=== PATIENT | female | born 1965 | race Caucasian/White ===

== ENCOUNTER 2017-12-16 10:19 | Emergency (ER) | payer OTHER ==
--- NOTE | 2017-12-16 10:31 | ED GI/GU/ABDOMINAL COMPLAINT ---
See Addendum History of Present Illness General Chief Complaint: Abdominal Pain/Flank Pain Stated Complaint: BIBA ABD PAIN Source: patient Exam Limitations: no limitations Vital Signs & Intake/Output Vital Signs & Intake/Output Vital Signs Date Time Temp Pulse Resp B/P B/P Pulse O2 O2 Flow FiO2 Mean Ox Delivery Rate 12/16 1851 97.0 78 18 123/70 12/16 1848 97.3 78 18 123/70 98 Room Air 12/16 1706 97.6 100 20 127/83 12/16 1623 97.6 100 20 127/83 97 Room Air 12/16 1210 Room Air 12/16 1201 98.3 100 18 124/82 12/16 1032 98.6 120 20 110/80 Allergies Coded Allergies: Sulfa (Sulfonamide Antibiotics) (UNKNOWN 12/16/17) Reconcile Medications No Known Home Medications Triage Nurses Notes Reviewed? yes ? N Is pt currently ? No Onset: Gradual Duration: day(s): Timing: recent history Quality/Severity: severe Location: generalized abdomen HPI: 52-year-old female with history of alcoholism BIBA to emergency department complaining of severe abdominal pain. Patient reports abdominal pain for the past 3 days. Abdominal pain described as 10/10 generalized and lower abdominal pain. She states she has the urge to "push something out" like she is in labor. Patient reports an episode of bright red vomiting prior to arrival. Patient has also had episodes of diarrhea, she is unsure of when her last bowel movement was. Patient reports drinking alcohol today to "numb the pain". Patient denies fevers, chills, vaginal bleeding, urinary symptoms. (Ching Layne) Past History Travel History Traveled to [place] past 21 day No Medical History Any Pertinent Medical History? see below for history Surgical History Surgical History: non-contributory Psychosocial History What is your primary language Italian Family History Hx Contributory? No (Ching Layne) Review of Systems Review of Systems Constitutional: Reports: no symptoms. EENTM: Reports: no symptoms. Respiratory: Reports: no symptoms. Cardiovascular: Reports: no symptoms. GI: Reports: see HPI. Genitourinary: Reports: no symptoms. Musculoskeletal: Reports: no symptoms. Skin: Reports: no symptoms. Neurological/Psychological: Reports: no symptoms. Hematologic/Endocrine: Reports: no symptoms. Immunologic/Allergic: Reports: no symptoms. All Other Systems: Reviewed and Negative (Alexandria BULL,Ching Juarez) Physical Exam Physical Exam General Appearance: well developed/nourished, alert, awake, moderate distress Head: atraumatic, normal appearance Eyes: Bilateral: normal appearance. Ears, Nose, Throat, Mouth: hearing grossly normal Neck: normal inspection, supple, full range of motion Respiratory: normal breath sounds, no respiratory distress, lungs clear Cardiovascular: regular rate/rhythm Gastrointestinal: TENDERNESS THROUGH OUT WITH GAURDING Rectal: deferred Back: normal inspection, normal range of motion Extremities: normal range of motion Neurologic/Psych: awake, alert, oriented x 3 Skin: intact, normal color, warm/dry Core Measures ACS in differential dx? No Sepsis Present: No Sepsis Focused Exam Completed? No (Alexandria BULL,Ching Juarez) Progress Differential Diagnosis: appendicitis, bowel obstruction, colon cancer, cholecystitis, diverticulitis, gastritis, hepatitis, hernia, inflamm bowel dis, kidney stone, Day-Anjel tear, peptic ulcer, PUD/GERD, perforated viscous, SBO , UTI/pyelo, esophageal perforation, uterine prolapse, GI bleed Plan of Care: Orders Procedure Date/time Status URINE DRUG SCREEN FOR ER ONLY 12/16 1030 Complete URINALYSIS 12/16 1030 Complete TROPONIN LEVEL 12/16 1030 Complete PARTIAL THROMBOPLASTIN TIME 12/16 1030 Complete PROTHROMBIN TIME 12/16 1030 Complete LIPASE 12/16 1030 Complete ETHANOL 12/16 1030 Complete COMPREHENSIVE METABOLIC PANEL 12/16 1030 Complete CBC WITHOUT DIFFERENTIAL 12/16 1030 Complete AMYLASE 12/16 1030 Complete EKG 12/16 1030 Active Current Medications Sig/Javier Start time Last Medication Dose Stop Time Status Admin Promethazine HCl 25 MG ONCE ONE 12/16 1545 CAN (Phenergen) 12/16 1546 Laboratory Tests 12/16/17 1230: Urine Opiates Screen 1116.00, Methadone Screen < 40, Barbiturate Screen < 60, Ur Phencyclidine Scrn < 6.00, Amphetamines Screen < 100, U Benzodiazepines Scrn < 85, Urine Cocaine Screen < 50, Urine Cannabis Screen < 5.00, Urine Color YEL, Urine Clarity HAZY H, Urine pH 6.0, Ur Specific [place] 1.015, Urine Protein 30 H, Urine Ketones NEG, Urine Nitrite NEG, Urine Bilirubin NEG, Urine Urobilinogen 0.2, Ur Leukocyte Esterase NEG, Ur Microscopic SEDIMENT EXAMINED, Urine RBC 1-3, Urine WBC 1-3 H, Ur Epithelial Cells MOD H, Urine Bacteria MOD H, Hyaline Casts 1-3 H, Granular Casts RARE H, Urine Hemoglobin TRACE-INTACT, Urine Glucose NEG 12/16/17 1040: Anion Gap 21 H, Estimated GFR > 60, BUN/Creatinine Ratio 21.7, Glucose 114 H, Calcium 9.6, Total Bilirubin 0.6, AST 38 H, ALT 32, Alkaline Phosphatase 142 H , Troponin I < 0.01, Total Protein 8.2, Albumin 4.9, Globulin 3.3, Albumin/ Globulin Ratio 1.5, Amylase 41, Lipase 153, PT 10.8, INR 0.99, APTT 26, CBC w Diff NO MAN DIFF REQ, RBC 5.15, MCV 91.5, MCH 31.7 H, MCHC 34.7, RDW 12.5, MPV 7.9, Gran % 65.5, Lymphocytes % 24.5, Monocytes % 9.0, Eosinophils % 0.5, Basophils % 0.5, Absolute Granulocytes 7.4 H, Absolute Lymphocytes 2.8, Absolute Monocytes 1.0 H, Absolute Eosinophils 0.1, Absolute Basophils 0.1, Serum Alcohol 273.[address] scan shows no acute abnormalities to explain the patient's current symptoms. The patient's labs are nonactionable, the patient's H/H is stable. The patient declined rectal exam. Patient's alcohol level is 273. She is complaining of persistent abdominal pain despite IV morphine. I informed the patient we could not provide her with further narcotic medications given her elevated alcohol level. Patient is requesting to leave the hospital however she does not have a ride. The patient is still intoxicated and will require a ride or will need to be sober prior to discharge. The patient was signed out to Dr. Muhammad pending clinical sobriety. Diagnostic Imaging: Viewed by Me: CT Scan. Discussed w/RAD: CT Scan. Radiology Impression: PATIENT: RAFAEL GARCIA PRESENT AGE: 52 PATIENT ACCOUNT NO: [id number] : 66 LOCATION: [facility] ORDERING PHYSICIAN: Ching BULL SERVICE DATE: 07/ EXAM TYPE: CAT - CT CERV SPINE WO IV CONTRAST; CT HEAD WO IV CONTRAST EXAMINATION: CT HEAD WITHOUT CONTRAST CT CERVICAL SPINE WITHOUT CONTRAST CLINICAL INFORMATION: Status post fall. COMPARISON: None. TECHNIQUE: Contiguous axial imaging was performed from the skullbase to vertex without intravenous administration of contrast. Multidetector helical imaging was performed through the cervical spine. DLP: 926.5 mGy-cm. FINDINGS: HEAD: There is no evidence of acute intracranial hemorrhage or territorial infarction. No abnormal mass effect or midline shift is seen. Casper to white matter differentiation is well preserved. No extra-axial fluid collections are identified. The ventricles are normal in size. Brain parenchymal attenuation is normal. The osseous structures and soft tissues are normal. The mastoid air cells and visualized portions of the paranasal sinuses are fairly well aerated. CERVICAL SPINE: No acute fracture or dislocation is identified in the cervical spine. There is a reversal of the normal cervical lordosis with mild to moderate disc space narrowing and minimal endplate spurring at the C4-C5 and C5-C6 levels. Mild degenerative disc bulges present in the mid to lower cervical spine. The atlantoaxial articulation is normally maintained. The paraspinal soft tissues are normal. The lung apices are clear. IMPRESSION: 1. No acute intracranial pathology. 2. No evidence of acute cervical spine traumatic injury. Mild mid to lower cervical spondylosis and reversal of the normal cervical lordosis. DICTATED BY: Manjit Jaime MD DATE/TIME DICTATED:12/16/171256 PATIENT CARE ASSISTANT:YVON DATE/TIME TRANSCRIBED:1256 CONFIDENTIAL, DO NOT COPY WITHOUT APPROPRIATE AUTHORIZATION. < Electronically signed in Other Vendor System> SIGNED BY: Manjit Jaime MD 12/16/17 1306, PATIENT: RAFAEL GARCIA PRESENT AGE: 52 PATIENT ACCOUNT NO: [id number] : 66 LOCATION: [facility] ORDERING PHYSICIAN: Ching BULL SERVICE DATE: 12/16/17 EXAM TYPE: CAT - CT ABD & PELVIS W IV CONTRAST; CT CHEST W IV CONTRAST EXAMINATION: CT SCAN OF THE CHEST WITH CONTRAST CT SCAN OF THE ABDOMEN AND PELVIS WITH CONTRAST CLINICAL INFORMATION: Rule out esophageal tear. Severe diffuse abdominal pain with hematemesis. COMPARISON: None TECHNIQUE: Multidetector helical imaging was performed in the axial plane following intravenous administration of 95 mL Optiray 320. Dose is 370.98 mGy-cm. FINDINGS: Chest: Heart size is normal. There is no mediastinal, axillary, or hilar adenopathy. The soft tissues of the lower neck appear normal. There is a small dystrophic calcification in the right thyroid lobe. No airspace consolidation is seen. There is no pneumothorax or pneumomediastinum. The esophagus is grossly unremarkable in the posterior mediastinum. The central airways are preserved. Along the major fissure posteriorly, there is a triangular-shaped nodular focus may reflect scarring, measuring approximately 1.3 cm in size. There is a small calcified granuloma in the right upper lobe as well. Abdomen and pelvis: The liver, gallbladder, spleen , adrenal glands, and pancreas appear normal. A subcentimeter low-density focus at the upper pole of the left kidney is too small to characterize but may represent cysts. Otherwise, the renal nephrograms are symmetric without evidence of hydronephrosis. The abdominal aorta is normal in caliber with mild atherosclerotic wall calcification. No free air or free fluid is seen. There is no evidence of a bowel obstruction. A few scattered colonic diverticula are present without evidence of acute diverticulitis. The appendix is normal. The bladder is distended without wall thickening. No abdominal wall hernia is identified. The uterus appears normal. No acute osseous abnormality is seen. IMPRESSION: No free air or pneumomediastinum to suggest an underlying esophageal tear. No fluid collections. No inflammatory changes. No acute findings in the chest, abdomen, or pelvis. Suspected focal scar in the right upper lobe along the major fissure posteriorly. Small right upper lobe calcified granuloma. DICTATED BY: Manjit Jaime MD DATE/TIME DICTATED:12/16/171422 PATIENT CARE ASSISTANT:YVON DATE/TIME TRANSCRIBED:12/16/171422 CONFIDENTIAL, DO NOT COPY WITHOUT APPROPRIATE AUTHORIZATION. <Electronically signed in Other Vendor System> SIGNED BY: Manjit Jaime MD 12/16/171442 Initial ED EKG: sinus tachycardia @105bpm, nonspecific ST changes Hand-Off Endorsed To: Villa Muhammad DO Endorsed Time: 1845 Pending: other (clinical sobriety) (Alexandria BULL,Ching Juarez) Departure Departure Disposition: STILL A PATIENT Condition: Stable Clinical Impression Primary Impression: Abdominal pain Qualifiers: Abdominal location: generalized Qualified Code: R10.84 - Generalized abdominal pain Secondary Impressions: Alcohol intoxication Qualifiers: Complication of substance-induced condition: with unspecified complication Qualified Code: F10.929 - Alcohol use, unspecified with intoxication, unspecified Referrals: Pablito Moreno MD Patient Has No Primary Care Dr (PCP/Family) Additional Instructions: Follow-up with milieu therapist regarding abdominal pain. Return if you have worsening symptoms or concerns. Please note that there might be incidental findings in your evaluation that are unrelated to the current emergency department visit. Please notify your primary care doctor about this emergency department visit in order to obtain and review all of the testing performed so that these incidental findings can be monitored as needed. If you had an x-ray performed, please understand that some fractures may not be seen on the initial set of x-rays. If your symptoms persist you might need a repeat set of x-rays to check for such a fracture. If you had a laceration evaluated, please understand that foreign bodies such as glass or wood may not be visible to the naked eye or on plain x-rays. If the wound becomes red, swollen, increasingly more painful or if there is any drainage from the wound, please have it reevaluated by a physician for the possibility of a retained foreign body. If you're unable to follow up as outlined in the discharge instructions please return to the emergency department. Thank you for choosing the [facility] Emergency Department for your care. It was a pleasure to serve you today. Departure Forms: Customer Survey General Discharge Information Prescriptions: Current Visit Scripts No Known Home Medications (Alexandria BULL,Ching Juarez) Departure Comments 12/16/17 The patient was signed out to me by Alexandria davis Status post vomiting and epigastric abdominal pain. She feels somewhat better now. She reports having episodes of hematemesis. She refused rectal exam. CT scan labs essentially unremarkable. Abdomen is soft. GI cocktail was ordered. (Villa Muhammad DO)
[2017-12-16 10:54] LABS: ABSOLUTE BASOPHIL COUNT 0.1 /CUMM (0.0-0.2); ABSOLUTE EOSINOPHIL COUNT 0.1 /CUMM (0.0-0.7); ABSOLUTE GRANULOCYTE CT 7.4 /CUMM (1.4-6.5); ABSOLUTE LYMPH COUNT 2.8 /CUMM (1.2-3.4); BASOPHIL % 0.5 % (0.0-2.0); EOSINOPHIL % 0.5 % (0-5); GRANULOCYTE % 65.5 % (42.2-75.2); HEMATOCRIT 47.2 % (37-47); MEAN CORPUSCULAR HGB 31.7 PG (27.0-31.0); MEAN CORPUSCULAR HGB CONC 34.7 G/DL (33.0-37.0); MEAN CORPUSCULAR VOLUME 91.5 FL (81.0-99.0); MEAN PLATELET VOLUME 7.9 FL (7.4-10.4); PLATELET COUNT 262 /CUMM (130-400); RBC DISTRIBUTION WIDTH 12.5 % (11.5-14.5); RED BLOOD CELL CT 5.15 /CUMM (4.20-5.40); WHITE BLOOD CELL COUNT 11.3 /CUMM (4.8-10.8)
[2017-12-16 11:03] LABS: PT 10.8 SEC (9.4-12.5); PTT 26 SEC (25-37)
--- NOTE | 2017-12-16 13:06 | CT SCAN REPORT ---
EXAMINATION: CT HEAD WITHOUT CONTRAST CT CERVICAL SPINE WITHOUT CONTRAST CLINICAL INFORMATION: Status post fall. COMPARISON: None. TECHNIQUE: Contiguous axial imaging was performed from the skullbase to vertex without intravenous administration of contrast. Multidetector helical imaging was performed through the cervical spine. DLP: 926.5 mGy-cm. FINDINGS: HEAD: There is no evidence of acute intracranial hemorrhage or territorial infarction. No abnormal mass effect or midline shift is seen. Casper to white matter differentiation is well preserved. No extra-axial fluid collections are identified. The ventricles are normal in size. Brain parenchymal attenuation is normal. The osseous structures and soft tissues are normal. The mastoid air cells and visualized portions of the paranasal sinuses are fairly well aerated. CERVICAL SPINE: No acute fracture or dislocation is identified in the cervical spine. There is a reversal of the normal cervical lordosis with mild to moderate disc space narrowing and minimal endplate spurring at the C4-C5 and C5-C6 levels. Mild degenerative disc bulges present in the mid to lower cervical spine. The atlantoaxial articulation is normally maintained. The paraspinal soft tissues are normal. The lung apices are clear. IMPRESSION: 1. No acute intracranial pathology. 2. No evidence of acute cervical spine traumatic injury. Mild mid to lower cervical spondylosis and reversal of the normal cervical lordosis.
--- NOTE | 2017-12-16 14:43 | CT SCAN REPORT ---
EXAMINATION: CT SCAN OF THE CHEST WITH CONTRAST CT SCAN OF THE ABDOMEN AND PELVIS WITH CONTRAST CLINICAL INFORMATION: Rule out esophageal tear. Severe diffuse abdominal pain with hematemesis. COMPARISON: None TECHNIQUE: Multidetector helical imaging was performed in the axial plane following intravenous administration of 95 mL Optiray 320. Dose is 370.98 mGy-cm. FINDINGS: Chest: Heart size is normal. There is no mediastinal, axillary, or hilar adenopathy. The soft tissues of the lower neck appear normal. There is a small dystrophic calcification in the right thyroid lobe. No airspace consolidation is seen. There is no pneumothorax or pneumomediastinum. The esophagus is grossly unremarkable in the posterior mediastinum. The central airways are preserved. Along the major fissure posteriorly, there is a triangular-shaped nodular focus may reflect scarring, measuring approximately 1.3 cm in size. There is a small calcified granuloma in the right upper lobe as well. Abdomen and pelvis: The liver, gallbladder, spleen, adrenal glands, and pancreas appear normal. A subcentimeter low-density focus at the upper pole of the left kidney is too small to characterize but may represent cysts. Otherwise, the renal nephrograms are symmetric without evidence of hydronephrosis. The abdominal aorta is normal in caliber with mild atherosclerotic wall calcification. No free air or free fluid is seen. There is no evidence of a bowel obstruction. A few scattered colonic diverticula are present without evidence of acute diverticulitis. The appendix is normal. The bladder is distended without wall thickening. No abdominal wall hernia is identified. The uterus appears normal. No acute osseous abnormality is seen. IMPRESSION: No free air or pneumomediastinum to suggest an underlying esophageal tear. No fluid collections. No inflammatory changes. No acute findings in the chest, abdomen, or pelvis. Suspected focal scar in the right upper lobe along the major fissure posteriorly. Small right upper lobe calcified granuloma.
[2017-12-16 20:16] VITALS: BP 122/89
== END 2017-12-16 20:16 ==
LOC: ERH 10:19
PROVIDERS: Physician Assistant
DX: F10.129 Alcohol abuse with intoxication, unspecified (principal); R10.84 Generalized abdominal pain
CPT/HCPCS: 74177; 80307; 81001; 93005; 93010; 96361; 96372; 96374; 96376; G0480; J2550

== ENCOUNTER 2017-12-26 22:20 | Inpatient (IN) | payer OTHER ==
[~2017-12-26] VITALS: Ht 170.2 cm; Wt 55.8 kg
--- NOTE | 2017-12-26 22:24 | ED PSYCHIATRIC COMPLAINT ---
History of Present Illness General Chief Complaint: Psychiatric Related Complaint Stated Complaint: BIBA AND POLICE SI AND INTOXICATED Source: patient Exam Limitations: no limitations Allergies Coded Allergies: Sulfa (Sulfonamide Antibiotics) (UNKNOWN 12/16/17) Reconcile Medications No Known Home Medications HPI: Per the police, "She called her brother who said that she was going to cut her wrists while in the bathtub.... We came right over and found her sitting on her sofa... She said that she had been drinking." She (Samia SANTA,Preston Sethi) Vital Signs & Intake/Output Vital Signs & Intake/Output Vital Signs Date Time Temp Pulse Resp B/P B/P Pulse O2 O2 Flow FiO2 Mean Ox Delivery Rate 12/26 2305 98.7 105 18 126/76 100 Room Air 12/26 2251 104 20 130/78 95 Room Air ED Intake and Output 12/27 0000 12/26 1200 Intake Total 200 Output Total Balance 200 Intake, Oral 200 HPI: 52 yo woman presents with concern for suicidality in context of recent alcohol use. (Carmelo Aguillon) Past History Travel History Traveled to [place] past 21 day No Medical History Neurological: DENIES EENT: DENIES Cardiovascular: DENIES Respiratory: DENIES Gastrointestinal: DENIES Hepatic: DENIES Renal: DENIES Musculoskeletal: DENIES Psychiatric: DENIES Endocrine: DENIES Surgical History Surgical History: non-contributory Psychosocial History What is your primary language Yakut (Samia SANTA,Pretson Sethi) Progress Plan of Care: Orders Procedure Date/time Status Regular Diet 12/27 B Active Continuous Observation Monitor 12/27 2223 Active URINE DRUG SCREEN FOR ER ONLY 12/27 2223 Active ETHANOL 12/27 2223 Complete COMPREHENSIVE METABOLIC PANEL 12/27 2223 Complete CBC WITHOUT DIFFERENTIAL 12/27 2223 Complete ED CRISIS PSYCH CONSULT 12/27 2223 Active Current Medications Sig/Javier Start time Last Medication Dose Stop Time Status Admin Acetaminophen 650 MG Q4P PRN 12/26 2244 AC 12/26 (Tylenol) 2243 Lorazepam 1 MG Q2P PRN 12/26 2244 AC (Ativan) Laboratory Tests 12/26/170: Anion Gap 16, Estimated GFR > 60, BUN/Creatinine Ratio 11.7, Glucose 104 H, Calcium 9.2, Total Bilirubin 0.3, AST 91 H, ALT 90 H, Alkaline Phosphatase 129 H, Total Protein 7.7, Albumin 4.6, Globulin 3.1, Albumin/Globulin Ratio 1.5, CBC w Diff NO MAN DIFF REQ, RBC 4.41, MCV 94.0, MCH 32.1 H, MCHC 34.2, RDW 14.6 H, MPV 6.8 L, Gran % 41.9 L, Lymphocytes % 44.5, Monocytes % 12.5 H, Eosinophils % 0.6, Basophils % 0.5, Absolute Granulocytes 3.8, Absolute Lymphocytes 4.0 H, Absolute Monocytes 1.1 H, Absolute Eosinophils 0.1, Absolute Basophils 0, Serum Alcohol 261.0 (Carmelo Aguillon) Departure Departure Condition: Stable Referrals: Patient Has No Primary Care Dr (PCP/Family) Departure Forms: Customer Survey General Discharge Information Prescriptions: Current Visit Scripts No Known Home Medications (Samia SANTA,Preston Sethi)
[2017-12-26 23:06] LABS: ABSOLUTE BASOPHIL COUNT 0 /CUMM (0.0-0.2); ABSOLUTE EOSINOPHIL COUNT 0.1 /CUMM (0.0-0.7); ABSOLUTE GRANULOCYTE CT 3.8 /CUMM (1.4-6.5); ABSOLUTE MONOCYTE COUNT 1.1 /CUMM (0.10-0.60); BASOPHIL % 0.5 % (0.0-2.0); EOSINOPHIL % 0.6 % (0-5); GRANULOCYTE % 41.9 % (42.2-75.2); HEMATOCRIT 41.4 % (37-47); MEAN CORPUSCULAR HGB 32.1 PG (27.0-31.0); MEAN CORPUSCULAR HGB CONC 34.2 G/DL (33.0-37.0); MEAN PLATELET VOLUME 6.8 FL (7.4-10.4); PLATELET COUNT 307 /CUMM (130-400); RBC DISTRIBUTION WIDTH 14.6 % (11.5-14.5); RED BLOOD CELL CT 4.41 /CUMM (4.20-5.40)
[2017-12-27] VITALS (8 sets, daily range): BP systolic 122–134; BP diastolic 76–93
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
[2017-12-27] MEDS ORDERED: IBUPROFEN200 M2 PO (12:34)
[2017-12-27] MEDS ORDERED: ATIVAN1 M1 PO (12:37)
[2017-12-27] MEDS ORDERED: PROZAC20 M2 PO (12:37)
[2017-12-27] MEDS ORDERED: LUNESTA3 M1 PO (12:40)
[2017-12-27] MEDS ORDERED: NEURONTIN300 M1 PO (12:52)
[2017-12-27] MEDS ORDERED: CYMBALTA20 M1 PO (12:53)
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
--- NOTE | 2017-12-27 16:54 | SOCIAL WORKER PROG NOTE PSYCH ---
Social Work Progress Note Progress Note Met with patient to attempt to complete Social Hx. Patient presented as tired, depressed, anxious and orientated x3 with flat affect. Patient denies SI/HI/AH/ VH. Patient had a visible bruise on her right jaw and eye and stated that she had pain in the injured area. Patient states she was anxious (rated anxiety 10 on a scale of 0 to 10, 10 being most severe) primarily because she could not find someone to take care of her cats while she was in the hospital. Patient reports she was jessa as depressed (would not rate on scale), stating primarily because she was "stuck in the hospital." Patient answered questions of being born in [place], [place], being raised by mother and father and having three older brothers. She stated that she loved her parents and they were both . The patient stated her brothers were supportive of her, but all lived in [place] while she moved to [place]. At this point in the session, the patient stated she "I do not want to be disrespectful, but can we finish this later? I am so tired and need to sleep." This clinician agreed to terminate the session at this point. The patient pulled her bed sheets over her and went to sleep.
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
[2017-12-28] VITALS (10 sets, daily range): BP systolic 106–138; BP diastolic 71–87
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
[2017-12-29] VITALS (10 sets, daily range): BP systolic 106–132; BP diastolic 59–94
[2017-12-29 07:49] LABS: ABSOLUTE BASOPHIL COUNT 0 /CUMM (0.0-0.2); ABSOLUTE EOSINOPHIL COUNT 0.1 /CUMM (0.0-0.7); ABSOLUTE GRANULOCYTE CT 2.2 /CUMM (1.4-6.5); ABSOLUTE MONOCYTE COUNT 0.7 /CUMM (0.10-0.60); GRANULOCYTE % 43.4 % (42.2-75.2); MEAN CORPUSCULAR HGB CONC 34.2 G/DL (33.0-37.0); MEAN PLATELET VOLUME 7.6 FL (7.4-10.4); PLATELET COUNT 226 /CUMM (130-400); RBC DISTRIBUTION WIDTH 14.5 % (11.5-14.5); RED BLOOD CELL CT 3.53 /CUMM (4.20-5.40)
[2017-12-29 07:50] LABS: BASOPHIL % 0.7 % (0.0-2.0); EOSINOPHIL % 2.9 % (0-5); MEAN CORPUSCULAR HGB 32.6 PG (27.0-31.0); MEAN CORPUSCULAR VOLUME 95.5 FL (81.0-99.0)
[2017-12-29 08:29] LABS: HEMATOCRIT 33.7 % (37-47)
--- NOTE | 2017-12-29 13:19 | CP SOUTH PROGRESS NOTE PSYCH ---
Psych (Inpt) Progress Note Progress Note Laboratory Tests 12/29 Total Bilirubin (0.2 - 1.3 mg/dL) 0.6 Direct Bilirubin (< 0.4 mg/dL) 0.1 AST (14 - 36 U/L) 49 H ALT (9 - 52 U/L) 61 H Alkaline Phosphatase (<127 U/L) 93 Total Protein (6.3 - 8.2 g/dL) 6.1 L Albumin (3.5 - 5.0 g/dL) 3.4 L Hematology CBC w Diff NO MAN DIFF REQ WBC (4.8 - 10.8 /CUMM) 5.0 RBC (4.20 - 5.40 /CUMM) 3.53 L Hgb (12.0 - 16.0 G/DL) 11.5 L Hct (37 - 47 %) 33.7 L MCV (81.0 - 99.0 FL) 95.5 MCH (27.0 - 31.0 PG) 32.6 H MCHC (33.0 - 37.0 G/DL) 34.2 RDW (11.5 - 14.5 %) 14.5 Plt Count (130 - 400 /CUMM) 226 MPV (7.4 - 10.4 FL) 7.6 Gran % (42.2 - 75.2 %) 43.4 Lymphocytes % (20.5 - 51.1 %) 39.5 Monocytes % (1.7 - 9.3 %) 13.5 H Eosinophils % (0 - 5 %) 2.9 Basophils % (0.0 - 2.0 %) 0.7 Absolute Granulocytes (1.4 - 6.5 /CUMM) 2.2 Absolute Lymphocytes (1.2 - 3.4 /CUMM) 2.0 Absolute Monocytes (0.10 - 0.60 /CUMM) 0.7 H Absolute Eosinophils (0.0 - 0.7 /CUMM) 0.1 Absolute Basophils (0.0 - 0.2 /CUMM) 0 Vital Signs Date Time Temp Pulse Resp B/P 12/29 1224 90 118/77 12/29 1203 90 118/77 12/29 0813 97.9 82 119/79 12/29 0750 97.9 82 119/79 12/29 0325 98.5 91 123/83 12/29 0124 72 18 106/59 12/28 2001 98.9 92 124/76 12/28 1944 98.9 92 124/76 Mental Status Examination Steady gait, healing bruise on R side of face and under R eye cooperative no agitation or retardation friendly Normal speech, not pressured, not slurred She showed a good range of affect Mood: "not good" denied Suicidal Ideation, denied Homicidal Ideation, denied Hallucinations: denied feeling paranoid, there were no delusions during the interview. Patient was coherent, there was no thought disorder, Orientation: x4 Cognition: grossly intact Memory Function: grossly intact Assessment: Pt with MDD with SI in the setting of not having meds and relapsing on alcohol Diagnosis(es): Major depressive disorder Generalized anxiety disorder Alcohol use disorder Nicotine dependence Treatment Plan Update: D/C Ativan Chlordiazepoxide 25 mg now , 25 mg at 5PM and 75 mg tonight at 9PM Increase Prozac to 20mg daily ,Continue mirtazapine for sleep and mood
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
[2017-12-30 08:01] VITALS: BP 121/76
[2017-12-30 08:03] VITALS: BP 121/76
--- NOTE | 2017-12-30 08:21 | CP SOUTH PROGRESS NOTE PSYCH ---
Psych (Inpt) Progress Note Progress Note ELIZA, RN, Group and Activities Therapist, and Psychiatrist discussed pt.'s progress, treatment plan, and aftercare plans. Vital Signs Date Time Temp Pulse B/P B/P O2 12/30 0803 96.3 70 121/76 12/30 0801 96.3 70 121/76 12/29 2110 98.9 12/29 2009 98.9 88 132/94 12/29 2006 98.9 88 132/94 12/29 1700 97.9 12/29 1616 97.9 Mental Status Examination The patient was alert and oriented to time, place, and person. She showed steady gait, healing bruise on R side of face and under R eye, cooperative, no agitation or retardation, friendly , Normal speech, not pressured and not slurred. She showed a good range of affect, she reported that her mood is better today. She denied having any wishes of or feeling hopeless or feeling worthless. She denied suicidal Ideation, denied homicidal Ideation, denied hallucinations. She denied feeling paranoid, there were no delusions during the interview. Patient was coherent, there was no thought disorder, she did not seem to have difficulties with information processing. She showed reasonable attention and concentration. There was no evidence of short-term memory impairment. Assessment: Francy Thapa is a 52-year-old White Woman with MDD with SI in the setting of not having meds and relapsing on alcohol Diagnose): Major depressive disorder Generalized anxiety disorder Alcohol use disorder Treatment Plan Update: Increase Gabapentin to 900 mg TID Change Chlordiazepoxide to 100 mg at bedtime Continue Prozac 20mg daily Continue mirtazapine for sleep and mood Major depressive disorder Generalized anxiety disorder Alcohol use disorder Nicotine dependence Treatment Plan Update: D/C Ativan Chlordiazepoxide 25 mg now , 25 mg at 5PM and 75 mg tonight at 9PM Increase Prozac to 20mg daily ,Continue mirtazapine for sleep and mood
--- NOTE | 2017-12-30 13:02 | SOCIAL WORKER PROG NOTE PSYCH ---
Social Work Progress Note Progress Note RAFAEL GARCIA [id number] 1965 RAFAEL GARCIA [id number] Pended Authorization # Client Authorization # Type of Request [id number] CONCURRENT Date of Admission/ Start of Services Requested From Submission Date 12/27/2017 12/30/2017 12/30/2017 Level of Service Type of Service Level of Care Type of Care INPATIENT/[facility]
--- NOTE | 2017-12-30 15:45 | SOCIAL WORKER PROG NOTE PSYCH ---
Social Work Progress Note Progress Note Dr. Robbins and this entry writer met with the patient. She stated that she was unable to sleep last night due to detoxing. She also reported that she did not have an appetite. Patient commented multiple times on how thankful she was for the treatment that she was being provided and would like to continue with IOP through upon discharge from [facility]. Patient identified a goal to have an x -ray of her face and "work on sleep." She discussed how she was very mindful about putting on make up today and putting on clothes that make her feel good about herself. She denied SI or thoughts wishing she were . She denied HI. Patient stated that she looks forward to eventually returning home when she is ready. Patient denied having any access to weapons or guns at home. She maintains that she does not want to have a family meeting.
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
--- NOTE | 2017-12-30 17:45 | RADIOLOGY REPORT ---
EXAMINATION: XR ZYGOMATIC ARCHES CLINICAL INFORMATION: Facial trauma COMPARISON: None TECHNIQUE: Zygomatic arches 5 views FINDINGS: The bones and soft tissues are unremarkable. No acute displaced fracture identified. IMPRESSION: Unremarkable examination.
[2017-12-30 20:22] VITALS: BP 125/76
[2017-12-31 08:07] VITALS: BP 103/71
--- NOTE | 2017-12-31 09:00 | CP SOUTH PROGRESS NOTE PSYCH ---
Psych (Inpt) Progress Note Progress Note ELIZA RN, Group and Activities Therapist, and Psychiatrist discussed the pt.'s progress, treatment plan, and aftercare plans. Vital Signs Date Time Temp Pulse B/P 12/31 0807 96.9 77 103/71 Mental Status Examination The patient was alert and oriented to time, place, and person. She was calm, cooperative, no agitation or retardation, friendly. She had normal speech, not pressured and not slurred. She showed a good range of affect, she reported that her mood is better today. She denied having any wishes of or feeling hopeless or feeling worthless. She denied suicidal ideation, denied homicidal ideation, and denied hallucinations. Francy denied feeling paranoid, there were no delusions during the interview. Patient was coherent, there was no thought disorder, she did not seem to have difficulties with information processing. She showed reasonable attention and concentration. Assessment Update: Francy Thapa is a 52-year-old White Woman who was admitted with SI in the setting of not having meds and relapsing on alcohol. She was on Ativan for years and will be eased off benzodiazepines with Librium Diagnoses: Major Depressive disorder Generalized Anxiety disorder Alcohol Use disorder Treatment Plan Update: Increase mirtazapine to 15 mg at bedtime Increase Gabapentin to 1200 mg TID Add PRN Thorazine 25 mg [id number] PRN anxiety Continue Chlordiazepoxide 100 mg at bedtime for another night Continue Prozac 20mg daily
--- NOTE | 2017-12-31 17:11 | SOCIAL WORKER PROG NOTE PSYCH ---
See Addendum Social Work Progress Note Progress Note This travel writer met with patient. She stated that she felt that her legs were weak and her head was "foggy." She stated that she spoke with the doctor about this, who believes it to be from her medications. Patient discussed wanting to "get my life back on track" and how she will work on creating healthy boundaries with people in her life. 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 She stated that she would like to go to [facility] and will schedule her work (3 days per week) around her IOP schedule. Patient stated that she plans to attend AA and obtain a sponsor. This travel writer suggested that the patient identify in the AA meeting book the meetings that she can attend, which she was agreeable to. Patient stated that she would also like to work with her IOP clinician to find an individual therapist and psychiatrist that she could see after completing IOP. Patient was agreeable to this travel writer scheduling an IOP intake appointment (possibly Friday).
[2017-12-31 19:46] VITALS: BP 100/66
[2018-01-01 07:39] VITALS: BP 108/70
--- NOTE | 2018-01-01 14:30 | CP SOUTH PROGRESS NOTE PSYCH ---
Psych (Inpt) Progress Note Progress Note DRIVER'S LICENSE REVIEWING OFFICER, RN, OTR/L, Group and Activities Therapist, and Psychiatrist discussed the pt.'s progress, inpatient treatment plan, and aftercare plans. Vital Signs Date Time Temp Pulse Resp B/P B/P Pulse O2 O2 Flow FiO2 01/01 0739 97.3 71 108/70 12/31 1945 98.7 77 100/66 Mental Status Examination Francy as alert and oriented to time, place, and person. She was calm, cooperative, no agitation or retardation, and normal speech (not pressured, not slurred). She showed a good range of affect, she reported that her mood is better today. Francy denied having any wishes of or feeling hopeless or feeling worthless. She denied suicidal ideation, denied homicidal ideation, and denied hallucinations. Francy denied feeling paranoid, there were no delusions during the interview. Francy was coherent, there was no thought disorder, she did not seem to have difficulties with information processing. She showed reasonable attention and concentration. Assessment Update: Francy Thapa is a 52-year-old White Woman who was admitted with SI in the setting of not having meds and relapsing on alcohol. She was on Ativan for years and will be eased off benzodiazepines with Librium. Since her admission to the inpatient psychiatric unit, the patient has shown significant improvement in her level of anxiety, she is less tremulous, and she has been denying thoughts of suicide or wishing for the past 3 days Diagnoses: Major Depressive disorder Generalized Anxiety disorder Alcohol Use disorder Treatment Plan Update: Reduce chlordiazepoxide (Librium) to 75 mg at bedtime Add as needed trazodone 50 mg at bedtime as needed if there is insomnia Add antibiotic eyedrops because the left eye seems red and irritated (? Conjunctivitis) PRN Thorazine 25 mg [id number] PRN anxiety Continue mirtazapine to 15 mg at bedtime Continue Gabapentin 1200 mg TIDContinue Prozac 20mg daily
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
[2018-01-01 20:09] VITALS: BP 121/67
[2018-01-02 07:35] VITALS: BP 111/62
--- NOTE | 2018-01-02 08:39 | CP SOUTH PROGRESS NOTE PSYCH ---
Psych (Inpt) Progress Note Progress Note INSPECTOR ROUGH CASTINGS, RN, OTR/L, Group and Activities Therapist, and Psychiatrist discussed the pt.'s progress, inpatient treatment plan, and aftercare plans. Vital Signs: Laboratory Tests 01/02 Total Bilirubin (0.2 - 1.3 mg/dL) 0.2 Direct Bilirubin (< 0.4 mg/dL) 0.2 AST (14 - 36 U/L) 31 ALT (9 - 52 U/L) 45 Alkaline Phosphatase (<127 U/L) 101 Total Protein (6.3 - 8.2 g/dL) 6.1 L Albumin (3.5 - 5.0 g/dL) 3.5 Vital Signs Date Time Temp Pulse B/P 01/02 0735 96.5 88 111/62 01/01 2009 98.7 76 121/67 Mental Status: Francy was alert and oriented to time, place, and person. She was calm, cooperative, and in good humor. He speech was normal (not pressured, not slurred). She reported that her mood was better today. Francy denied feeling hopeless or feeling worthless. She denied having any wishes of or suicidal ideation, denied homicidal ideation, and denied hallucinations. Francy denied feeling paranoid, there were no delusions during the interview. Francy was coherent, there was no thought disorder, she did not seem to have difficulties with information processing. She showed reasonable attention and concentration. Assessment Update: Francy Thapa is a 52-year-old White Woman who was admitted with SI in the setting of not having meds and relapsing on alcohol. She was on Ativan for years and will be eased off benzodiazepines with Librium. Since her admission to the inpatient psychiatric unit on 12/27/2017, she has shown significant improvement in her level of anxiety, she is less tremulous, and she has been denying thoughts of suicide or wishing for the past 3 days Diagnoses: Major Depressive disorder Generalized Anxiety disorder Alcohol Use disorder Treatment Plan Update: D/C to Dual IOP Intake then Home Start Naltrexone 25 mg daily
[2018-01-02] MEDS ORDERED: NICORELIEF2 MG PO (10:12)
[2018-01-02] MEDS ORDERED: GABAPENTIN600 M1 PO (10:12)
[2018-01-02] MEDS ORDERED: FLUOXETINE HCL20 M2 PO (10:15)
[2018-01-02] MEDS ORDERED: TRAZODONE HCL50 M1 PO (10:15)
[2018-01-02] MEDS ORDERED: OFLOXACIN5 ML OPH (10:15)
--- NOTE | 2018-01-02 10:18 | Patient Discharge Instructions ---
Psych Discharge Inst General Discharge Information Reason for Admission: depression Psy Discharge Primary Diag+ Unspecified Depressive Di Psy Discharge Secondary Diag+ Alcohol use Disorder Summary Tests/Major Procedures normal liver enzymes at the day of discharge Studies Pending at DC: none Patient Instructions Contact Information Your Psychiatrist on [facility] was Darin Robbins MD * If you are experiencing an emergency related to this hospitalization, please call [phone] to contact the treating psychiatrist or the psychiatrist-on- call. * To Request a copy of your medical records, please contact the Medical Records Department at [phone]. * To request results of studies pending at the time of discharge, please call [phone]. * Continue your Medications until directed to stop by your Healthcare provider. General Medication Information Please continue to take your new medications and your continued home medications , unless otherwise indicated on your discharge medication list, or unless directed by your MD or DATA PROCESSING OPERATOR to stop them. Special Instructions Diet Regular Activity Normal - Tobacco Use Treatment Offered Post DC Medications Offered: Script Given-See Med List Post DC Tobacco Treatment Plan: Refused Tobacco Tx Pgm - EtOH/Drug Use D/O Treatment Offered Post DC Medications Offered: Script Given-See Med List Post DC EtOH/SubAbuse [place] Plan: Lon SubAbuse/Dual IOP Metabolic Screening Not Applicable, patient not on a neuroleptic. Advance Directives Does the Patient have Medical Advance Directives No/Refused further info Does Pt have Psychiatric Advance Directives? No/Refused further info Does Patient have a Designated Surrogate Decision Maker: No Information About Psychiatric Advance Directives Provided? Refused Discharge Plan Post Hospital Treatment Plan: Dual IOP
[2018-01-02] MEDS ORDERED: CHLORDIAZEPOXID25 M3 PO (10:24)
--- NOTE | 2018-01-02 11:50 | DISCHARGE SUMMARY REPORT-PSYCH ---
Visit Information Visit Dates/Diagnosis' Admission Date: 12/27/17 Reason for Admission: depression Psy Discharge Primary Diag: Unspecified Depressive Di Psy Discharge Secondary Diag: Alcohol use Disorder Hospital Course Course Allergies: Coded Allergies: Fish Containing Products (ANAPHYLAXIS 12/27/17) Sulfa (Sulfonamide Antibiotics) (HIVES, RASH 12/27/17) shellfish derived (ANAPHYLAXIS 12/27/17) Hospital Course/TX Response: EXPLOSIVE ORDNANCE MANAGER, RN, OTR/L, Group and Activities Therapist, and Psychiatrist discussed the pt.'s progress, inpatient treatment plan, and aftercare plans. Vital Signs: Laboratory Tests 01/02 Total Bilirubin (0.2 - 1.3 mg/dL) 0.2 Direct Bilirubin (< 0.4 mg/dL) 0.2 AST (14 - 36 U/L) 31 ALT (9 - 52 U/L) 45 Alkaline Phosphatase (<127 U/L) 101 Total Protein (6.3 - 8.2 g/dL) 6.1 L Albumin (3.5 - 5.0 g/dL) 3.5 Vital Signs Date Time Temp Pulse B/P 01/02 0735 96.5 88 111/62 01/01 2009 98.7 76 121/67 Mental Status: Francy was alert and oriented to time, place, and person. She was calm, cooperative, and in good humor. He speech was normal (not pressured, not slurred). She reported that her mood was better today. Francy denied feeling hopeless or feeling worthless. She denied having any wishes of or suicidal ideation, denied homicidal ideation, and denied hallucinations. Francy denied feeling paranoid, there were no delusions during the interview. Francy was coherent, there was no thought disorder, she did not seem to have difficulties with information processing. She showed reasonable attention and concentration. Assessment Update: Francy Thapa is a 52-year-old White Woman who was admitted with SI in the setting of not having meds and relapsing on alcohol. She was on Ativan for years and will be eased off benzodiazepines with Librium. Since her admission to the inpatient psychiatric unit on 12/27/2017, she has shown significant improvement in her level of anxiety, she is less tremulous, and she has been denying thoughts of suicide or wishing for the past 3 days Diagnoses: Major Depressive disorder Generalized Anxiety disorder Alcohol Use disorder Treatment Plan Update: D/C to Dual IOP Intake then Home Start Naltrexone 25 mg daily Discharge HBIPS - Tobacco Use Treatment Offered Post DC Medications Offered: Script Given-See Med List Post DC Tobacco Treatment Plan: Refused Tobacco Tx Pgm - EtOH/Drug Use D/O Treatment Offered Post DC Medications Offered: Script Given-See Med List Post DC EtOH/SubAbuse TX Plan: Lon SubAbuse/Dual IOP Metabolic Screening - Screen if on a Neuroleptic Medication - Metabolic screening should include: - Blood Pressure, BMI, Glucose or Hgb A1c, & a - Lipid profile from within the past 365 days. Metabolic Screening Not Applicable, patient not on a neuroleptic. Discharge Instructions General Discharge Information Multiple Neuroleptics: () Not Applicable OR Document below three failed attempts at monotherapy, or a plan to taper to monotherapy, or augmentation of Clozapine. () Discharge Diet Regular Discharge Activity Normal Referrals Ordered Referrals Intensive Outpt Psy-Substance 01/02/[address] [place] [address] [place] [id number] [address] [phone] Intake appointment: 01/02/18, at 1:15pm [facility] (medical cab): [phone] [facility]: [phone] OUTPATIENT PSYCH - SUBSTANCE 01/14/18 248[address] [place], [place] [id number] [facility] [address] [phone] Group meets every other Friday at 4pm Next group: 01/14/18, at 4pm Prescriptions Stop taking the following medications: Duloxetine Hydrochloride (Cymbalta) 20 MG CAPSULE. ORAL TAKE AT BEDTIME Ibuprofen (Ibuprofen) 200 MG TABLET ORAL as needed for PAIN/INFLAMMATION Fluoxetine HCl (Prozac) 20 MG CAPSULE ORAL DAILY LORazepam (Ativan) 1 MG TAB ORAL THREE TIMES DAILY Eszopiclone (Lunesta) 3 MG TABLET ORAL Every night Gabapentin (Neurontin) 300 MG CAPSULE ORAL TAKE AT BEDTIME Start taking the following new medications: Nicotine (Nicorelief) 2 MG GUM 2 Milligram ORAL EVERY 2 HOURS NEEDED as needed for nicotine cravings Qty = 60 No Refills Fluoxetine HCl (Fluoxetine HCl) 20 MG CAPSULE 20 Milligram ORAL DAILY Qty = 15 No Refills Trazodone HCl (Trazodone HCl) 50 MG TABLET 2 Tablet ORAL AT BEDTIME as needed for Insomnia Qty = 30 No Refills Ofloxacin (Ofloxacin) 0.3 % DROPS 1 Drop In the eye 4 TIMES A DAY Qty = 1 No Refills Gabapentin (Gabapentin) 600 MG TABLET 2 Tablet ORAL THREE TIMES DAILY Qty = 90 No Refills Chlordiazepoxide HCl (Chlordiazepoxide HCl) 25 MG CAPSULE 3 Capsule ORAL SEE INSTRUCTIONS Qty = 27 No Refills Instructions: 3 cap QHSx4 nights, then 2 caps QHS x 5 days then 1 cap QHS x 5 days Studies Pending at Discharge none
[2018-01-02] MEDS ORDERED: NALTREXONE HCL50 M1 PO (11:51)
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
== END 2018-01-02 13:24 | DRG 754 ==
LOC: ERH 22:20 → ERHI 12-27 12:17 → CP SOUTH 12-27 12:17 → ENTRNSPT 12-27 12:58 → EDTRNSPTSTS 12-27 13:06 → EDTRNSPT 12-27 13:06 → CP SOUTH 12-27 13:30 → CMPTRNSPT 12-27 13:35 → CP SOUTH 12-27 13:48
PROVIDERS: Pediatrics; Student in an Organized Health Care Education/Training Program
DX: F32.9 Major depressive disorder, single episode, unspecified (principal); F10.10 Alcohol abuse, uncomplicated
CPT/HCPCS: 36415; 70100; 70150; 80307; 96372; G0480; J0515; J1630; J3490

== ENCOUNTER 2018-01-26 14:10 | Emergency (ER) | payer OTHER ==
[~2018-01-26] VITALS: Ht 172.7 cm; Wt 56.7 kg
[~2018-01-26 14:10] MED LIST: ATIVAN1 M1 PO; CHLORDIAZEPOXID25 M3 PO; CYMBALTA20 M1 PO; FLUOXETINE HCL20 M2 PO; GABAPENTIN600 M1 PO; IBUPROFEN200 M2 PO; LUNESTA3 M1 PO; NALTREXONE HCL50 M1 PO; NEURONTIN300 M1 PO; NICORELIEF2 MG PO; OFLOXACIN5 ML OPH; PROZAC20 M2 PO; TRAZODONE HCL50 M1 PO
[2018-01-26 15:17] LABS: ABSOLUTE BASOPHIL COUNT 0.1 /CUMM (0.0-0.2); ABSOLUTE EOSINOPHIL COUNT 0.2 /CUMM (0.0-0.7); ABSOLUTE GRANULOCYTE CT 5.2 /CUMM (1.4-6.5); ABSOLUTE LYMPH COUNT 2.5 /CUMM (1.2-3.4); ABSOLUTE MONOCYTE COUNT 0.7 /CUMM (0.10-0.60); BASOPHIL % 0.7 % (0.0-2.0); EOSINOPHIL % 2.3 % (0-5); GRANULOCYTE % 60.2 % (42.2-75.2); MEAN CORPUSCULAR HGB 31.6 PG (27.0-31.0); MEAN CORPUSCULAR HGB CONC 33.1 G/DL (33.0-37.0); MEAN CORPUSCULAR VOLUME 95.5 FL (81.0-99.0); MEAN PLATELET VOLUME 8.4 FL (7.4-10.4); PLATELET COUNT 195 /CUMM (130-400); RBC DISTRIBUTION WIDTH 15.3 % (11.5-14.5); WHITE BLOOD CELL COUNT 8.7 /CUMM (4.8-10.8)
[2018-01-26 15:40] VITALS: BP 11/73
--- NOTE | 2018-01-26 16:19 | ED PSYCHIATRIC COMPLAINT ---
History of Present Illness General Chief Complaint: Psychiatric Related Complaint Stated Complaint: WANTS CRISIS EVAL Source: patient, family Exam Limitations: no limitations Vital Signs & Intake/Output Vital Signs & Intake/Output ED Intake and Output 01/27 0000 01/26 1200 Intake Total 0 Output Total Balance 0 Intake, Oral 0 Patient 125 lb Weight Weight Reported by Patient Measurement Method Allergies Coded Allergies: Fish Containing Products (ANAPHYLAXIS 12/27/17) Sulfa (Sulfonamide Antibiotics) (HIVES, RASH 12/27/17) shellfish derived (ANAPHYLAXIS 12/27/17) Reconcile Medications Chlordiazepoxide HCl 25 MG CAPSULE 3 CAP PO SEE ADMIN CRITERIA anxiety 3 cap QHSx4 nights, then 2 caps QHS x 5 days then 1 cap QHS x 5 days Fluoxetine HCl 20 MG CAPSULE 20 MG PO DAILY anxiety/depression Gabapentin 600 MG TABLET 2 TAB PO TID anxiety Naltrexone HCl 50 MG TABLET 0.5 TAB PO DAILY alcohol cravings Nicotine (Nicorelief) 2 MG GUM 2 MG PO Q2P PRN nicotine cravings Ofloxacin 0.3 % DROPS 1 GTT OPH 4 TIMES/DAY conjunctivitis Trazodone HCl 50 MG TABLET 2 TAB PO AT BEDTIME PRN Insomnia Triage Note: See nurse's note Triage Nurses Notes Reviewed? yes Onset: Gradual Duration: hour(s): Timing: recent history Severity: moderate HPI: 52-year-old female presents emergency department for conflict she had today with her son. Patient's 14-year-old son is present with her in ED. son began breaking things in the house yesterday and continued this behavior today. Son also punched the wall. This patient was concerned and she called 911. Please recommended they both come to the hospital for evaluation. Mom states that she came to that she couldn't support her son here however she denies feeling depression, anxiety, suicidal ideation. She has been sober for 1 month. Past History Travel History Traveled to [place] past 21 day No Medical History Any Pertinent Medical History? 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 No Review of Systems Review of Systems Constitutional: Reports: no symptoms. EENTM: Reports: no symptoms. Respiratory: Reports: no symptoms. Cardiovascular: Reports: no symptoms. GI: Reports: no symptoms. Genitourinary: Reports: no symptoms. Musculoskeletal: Reports: no symptoms. Skin: Reports: no symptoms. Neurological/Psychological: Reports: no symptoms. Hematologic/Endocrine: Reports: no symptoms. Immunologic/Allergic: Reports: no symptoms. All Other Systems: Reviewed and Negative Physical Exam Physical Exam General Appearance: well developed/nourished, no apparent distress, alert, awake Head: atraumatic, normal appearance Eyes: Bilateral: normal appearance. Ears, Nose, Throat: hearing grossly normal Neck: normal inspection, supple, full range of motion Respiratory: normal breath sounds, no respiratory distress, lungs clear Cardiovascular: regular rate/rhythm Extremities: normal range of motion Neurological/Psychiatric: no motor/sensory deficits, awake, alert, normal mood/ affect Appearance/Memory/Insight: appropriate appearance Behavoir/Eye Contact/Speech: cooperative, good eye contact Thoughts/Hallucinations: normal thought pattern Skin: intact, normal color, warm/dry SAD PERSONS Done? patient not suicidal Progress Differential Diagnosis: drug intoxication, drug overdose, family conflict Plan of Care: Orders Procedure Date/time Status URINE DRUG SCREEN FOR ER ONLY 01/26 141 Active URINALYSIS 01/26 1415 Active ETHANOL 01/26 1415 Complete COMPREHENSIVE METABOLIC PANEL 01/26 1415 Complete CBC WITHOUT DIFFERENTIAL 01/26 1415 Complete Laboratory Tests 01/26/18 1506: Anion Gap 9, Estimated GFR > 60, BUN/Creatinine Ratio 20.0, Glucose 93, Calcium 9.3, Total Bilirubin 0.3, AST 20, ALT 21, Alkaline Phosphatase 89, Total Protein 7.7, Albumin 4.7, Globulin 3.0, Albumin/Globulin Ratio 1.6, CBC w Diff NO MAN DIFF REQ, RBC 4.50, MCV 95.5, MCH 31.6 H, MCHC 33.1, RDW 15.3 H, MPV 8.4, Gran % 60.2, Lymphocytes % 29.0, Monocytes % 7.8, Eosinophils % 2.3, Basophils % 0.7, Absolute Granulocytes 5.2, Absolute Lymphocytes 2.5, Absolute Monocytes 0.7 H, Absolute Eosinophils 0.2, Absolute Basophils 0.1, Serum Alcohol < 10.0 Patient is not currently suicidal or homicidal. She reports no current symptoms. She states she is solely here to support her son. She would like to be present for his evaluation by crisis however she does not feel she needs to be evaluated by crisis herself. Given these findings the patient was discharged , she remains here in the emergency department with her son who is being worked up medically and by crisis. Departure Departure Disposition: HOME OR SELF CARE Condition: Stable Clinical Impression Primary Impression: Family conflict Referrals: Patient Has No Primary Care Dr (PCP/Family) Departure Forms: Customer Survey General Discharge Information
== END 2018-01-26 16:23 ==
LOC: ERH 14:10
PROVIDERS: Physician Assistant Medical
DX: Z73.9 Problem related to life management difficulty, unspecified (principal); F10.20 Alcohol dependence, uncomplicated; F41.9 Anxiety disorder, unspecified; F32.9 Major depressive disorder, single episode, unspecified; F19.10 Other psychoactive substance abuse, uncomplicated; F17.210 Nicotine dependence, cigarettes, uncomplicated
CPT/HCPCS: 80307; G0480

== ENCOUNTER 2018-03-04 12:09 | Emergency (ER) | payer OTHER ==
[~2018-03-04] VITALS: Ht 170.2 cm; Wt 56.2 kg
--- NOTE | 2018-03-04 13:40 | ED GENERAL ADULT ---
History of Present Illness General Chief Complaint: General Adult Stated Complaint: "I THINK I HAVE LOW BLD SUGAR" CANT WALK, TALK, Source: patient, friend Exam Limitations: no limitations Vital Signs & Intake/Output Vital Signs & Intake/Output Vital Signs Date Time Temp Pulse Resp B/P B/P Pulse O2 O2 Flow FiO2 Mean Ox Delivery Rate 03/04 1709 98.2 72 16 110/82 98 Room Air 03/04 1501 97.6 74 18 112/68 98 Room Air 03/04 1218 98.3 76 18 110/76 98 Room Air Allergies Coded Allergies: Fish Containing Products (ANAPHYLAXIS 12/27/17) Sulfa (Sulfonamide Antibiotics) (HIVES, RASH 12/27/17) shellfish derived (ANAPHYLAXIS 12/27/17) Reconcile Medications Chlordiazepoxide HCl 25 MG CAPSULE 3 CAP PO SEE ADMIN CRITERIA anxiety 3 cap QHSx4 nights, then 2 caps QHS x 5 days then 1 cap QHS x 5 days Fluoxetine HCl 20 MG CAPSULE 20 MG PO DAILY anxiety/depression Gabapentin 600 MG TABLET 2 TAB PO TID anxiety Naltrexone HCl 50 MG TABLET 0.5 TAB PO DAILY alcohol cravings Nicotine (Nicorelief) 2 MG GUM 2 MG PO Q2P PRN nicotine cravings Ofloxacin 0.3 % DROPS 1 GTT OPH 4 TIMES/DAY conjunctivitis Trazodone HCl 50 MG TABLET 2 TAB PO AT BEDTIME PRN Insomnia Triage Note: 52 YO [facility] ?LOW BLOOD SUGAR. REPORST SINCE LAST PM SHE HAS FELT "FOGGY" STATES TODAY SHE IS OFF BALANCE. PT DENIES ANY PAIN. BS 74 AT THIS TIME. Triage Nurses Notes Reviewed? yes HPI: The patient is a 52-year-old female with a past medical history significant for anxiety, and insomnia who showed to ED with chief complaint of shakiness, sweating, gait instability. The patient mentions that she had one episode of shakiness, weakness, gait instability last night, she drank 1 Gatorade and feels better after 15 minutes. This morning she had the same symptoms and she also had slurred speech. On presentation her fingerstick blood sugar was 74. She had a banana and Gatorade this morning. She has one episode of low blood sugar of 40, for which she went to [facility], they gave him a couple of orange juices, and then she was discharged from ED. She is a previous drinker as she states, last drink was 67 days ago. Before that she was sober for 10 years. She has occasional palpitations. Couple of nights ago she had night sweating. She has frequent nightmares, does not feel refreshed in the morning. Has not been told that she snores. From last night she denies any chest pain, chest pressure, chest tightness, shortness of breath, nausea, vomiting, abdominal pain, dysuria, frequency. She also denies any change in sensation in extremities or face, any weakness in unilateral extremities. She is currently taking gabapentin, Prozac, naltrexone, and trazodone as needed. She reports that she gets diarrhea after drinking coffee, no blood, no abdominal cramps. She has a family history in both parents for diabetes mellitus. She has never been diagnosed with diabetes mellitus. And she is not taking any hypoglycemic agents. (Jett Hernandez MD) Onset: Abrupt Duration: hour(s): Timing: recent history (Villa Muhammad DO) Past History Travel History Traveled to [place] past 21 day No Medical History Any Pertinent Medical History? 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 No (Jett Hernandez MD) Review of Systems Review of Systems Constitutional: Reports: see HPI. (Jett Hernandez MD) Review of Systems EENTM: Denies: visual changes. Respiratory: Denies: short of breath. Cardiovascular: Denies: chest pain. GI: Denies: abdominal pain. Genitourinary: Reports: no symptoms. Musculoskeletal: Reports: no symptoms. Skin: Reports: no symptoms. Neurological/Psychological: Reports: see HPI. Hematologic/Endocrine: Reports: no symptoms. (Villa Muhammad DO) Physical Exam Physical Exam General Appearance: well developed/nourished, no apparent distress, alert Head: atraumatic, normal appearance Eyes: Bilateral: normal appearance, PERRL, EOMI. Ears, Nose, Throat: normal pharynx, normal ENT inspection, hearing grossly normal Neck: normal inspection, supple, full range of motion Respiratory: Bilateral generalized coarse rales Cardiovascular: regular rate/rhythm Peripheral Pulses: 2+ radial (R), 2+ radial (L), 2+ dorsalis pedis (R), 2+ dorsalis pedis (L) Gastrointestinal: normal bowel sounds, soft, non-tender, no organomegaly Back: normal inspection, normal range of motion Extremities: normal inspection, normal capillary refill, normal range of motion Neurologic/Psych: awake, alert, oriented x 3, normal gait, normal mood/affect Core Measures ACS in differential dx? No CVA/TIA Diagnosis: No Sepsis Present: No Sepsis Focused Exam Completed? Yes (Mary SANTA,Jett) Physical Exam Skin: intact, normal color, warm/dry (Villa Muhammad DO) Progress Differential Diagnoses I considered the following diagnoses in my evaluation of the patient: [Anxiety, low blood sugars of unknown reason, alcohol abuse, home medication side effects] Plan of Care: Orders Procedure Date/time Status CBC WITHOUT DIFFERENTIAL 03/04 1417 Complete BASIC ELECTROLYTES PLUS BUN&CR 03/04 141 Complete Laboratory Tests 03/04/18 1423: Anion Gap 7, Estimated GFR > 60, BUN/Creatinine Ratio 14.3, CBC w Diff NO MAN DIFF REQ, RBC 4.51, MCV 94.8, MCH 31.7 H, MCHC 33.5, RDW 14.3, MPV 8.3, Gran % 50.4, Lymphocytes % 37.4, Monocytes % 8.2, Eosinophils % 3.3, Basophils % 0.7, Absolute Granulocytes 4.8, Absolute Lymphocytes 3.6 H, Absolute Monocytes 0.8 H, Absolute Eosinophils 0.3, Absolute Basophils 0.1 Initial ED EKG: none (Mary SANTA,Jett) Differential Diagnoses I considered the following diagnoses in my evaluation of the patient: [CVA, TIA, peripheral vertigo, adverse drug reaction] (Villa Muhammad DO) Departure Departure Disposition: HOME OR SELF CARE Condition: Stable Clinical Impression Primary Impression: Low blood sugar reading Referrals: Patient Has No Primary Care Dr (PCP/Family) Departure Forms: Customer Survey General Discharge Information (Mary SANTA,Jett) Departure Comments I saw and personally examined the patient and I agree with the network internship's evaluation. 52-year-old female status post severe dizziness. She also says that she had some slurred speech, no chest pain or shortness of breath or headache. Her symptoms resolved completely in the emergency department. She did have did have bilateral fatiguing horizontal nystagmus, on my exam. The remainder of her exam was completely normal. No weakness. No slurred speech. No objective sensory deficits. No past pointing. Her symptoms are nonspecific, and she has a history of apparently hypoglycemic episodes in the past that are brought on similar symptoms. I suspect she has an inner ear disturbance or adverse drug reaction. She will follow-up with her doctor this week, review medications with him, try lipo flavinoid plus, return to the ED if worse. CT scan of the head was negative Labs were unremarkable. (Villa Muhammad DO) Critical Care Note Critical Care Note Critical Care Time: non-applicable (Villa Muhammad DO)
[2018-03-04 14:44] LABS: ABSOLUTE BASOPHIL COUNT 0.1 /CUMM (0.0-0.2); ABSOLUTE EOSINOPHIL COUNT 0.3 /CUMM (0.0-0.7); ABSOLUTE GRANULOCYTE CT 4.8 /CUMM (1.4-6.5); ABSOLUTE LYMPH COUNT 3.6 /CUMM (1.2-3.4); ABSOLUTE MONOCYTE COUNT 0.8 /CUMM (0.10-0.60); BASOPHIL % 0.7 % (0.0-2.0); EOSINOPHIL % 3.3 % (0-5); GRANULOCYTE % 50.4 % (42.2-75.2); HEMATOCRIT 42.8 % (37-47); MEAN CORPUSCULAR HGB 31.7 PG (27.0-31.0); MEAN CORPUSCULAR HGB CONC 33.5 G/DL (33.0-37.0); MEAN CORPUSCULAR VOLUME 94.8 FL (81.0-99.0); MEAN PLATELET VOLUME 8.3 FL (7.4-10.4); PLATELET COUNT 212 /CUMM (130-400); RBC DISTRIBUTION WIDTH 14.3 % (11.5-14.5); RED BLOOD CELL CT 4.51 /CUMM (4.20-5.40); WHITE BLOOD CELL COUNT 9.5 /CUMM (4.8-10.8)
--- NOTE | 2018-03-04 15:01 | CT SCAN REPORT ---
EXAMINATION: CT HEAD WITHOUT CONTRAST CLINICAL INFORMATION: Slurred speech. COMPARISON: CT head 12/16/2017. TECHNIQUE: Contiguous axial imaging was performed from the skull base to vertex without intravenous administration of contrast. DLP: 634.92 mGy-cm FINDINGS: There is no acute intracranial hemorrhage or abnormal extra-axial collection. No intracranial mass effect or midline shift. Lateral and third ventricles are normal. No hydrocephalus. Casper-white matter differentiation is grossly preserved and there is no evidence of acute territorial infarct. The calvarium and skull base are intact. Mastoid air cells and middle ear cavities are well-aerated. Visualized paranasal sinuses are well-aerated. Globes and orbits are symmetric. IMPRESSION: Unremarkable CT scan of the head. No evidence of acute territorial infarct or hemorrhage.
[2018-03-04 17:09] VITALS: BP 110/82
== END 2018-03-04 17:11 ==
LOC: ERH 12:09
PROVIDERS: Internal Medicine
DX: E16.2 Hypoglycemia, unspecified (principal); R25.1 Tremor, unspecified; R61 Generalized hyperhidrosis; R26.89 Other abnormalities of gait and mobility; F10.21 Alcohol dependence, in remission; F19.10 Other psychoactive substance abuse, uncomplicated
CPT/HCPCS: 82436